=== PATIENT | male | born 2000 | race Caucasian/White ===

== ENCOUNTER 2021-06-17 20:49 | Emergency (ER) | payer BC ==
[2021-06-17] MEDS ORDERED: LIDOCAINE 1% INJ 10MG/ML (20 ML MDV) SQ ONE (21:58)
--- NOTE | 2021-06-17 22:19 | XR ---
EXAMINATION TYPE: XR finger RT DATE OF EXAM: 06/17/2021 COMPARISON: NONE HISTORY: Pain TECHNIQUE: 3 views FINDINGS: There is linear lucency over the medial aspect of the head of the proximal phalanx of the i ndex finger consistent with laceration. I see no foreign body. There is no fracture nor dislocation. IMPRESSION: No fracture. Laceration defect.
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
[2021-06-17] MEDS ORDERED: DIPH,PERTUS(ACELL)TETVAC-LF 0.5 ML VIAL IM ONE (23:34)
[2021-06-17] MEDS ORDERED: CEPHALEXIN 500MG STARTER PACK 4 CAP BTL PO STA (23:34)
[2021-06-18] MEDS ORDERED: DIPH,PERTUS(ACELL)TETVAC-LF 0.5 ML VIAL IM ONE (00:26)
[2021-06-18 00:48] VITALS: BP 128/68; PULSE 87; RESP 17; TEMP 97.6
== END 2021-06-18 00:34 | disposition home or self-care (01) ==
LOC: EC 20:49
DX: S61.210A Laceration without foreign body of right index finger without damage to nail, initial encounter (principal); Z23 Encounter for immunization; Z79.52 Long term (current) use of systemic steroids; W26.8XXA Contact with other sharp object(s), not elsewhere classified, initial encounter; Y92.009 Unspecified place in unspecified non-institutional (private) residence as the place of occurrence of the external cause
CPT/HCPCS: 73140; 90715; 12002; 90471; 99283; J2001